=== PATIENT | male | born 1980 | race Caucasian/White ===

== ENCOUNTER 2017-07-22 13:28 | Emergency (ER) | payer OTHER ==
[2017-07-22 14:17] VITALS: BMI 25.3
--- NOTE | 2017-07-22 14:18 | PDOC ---
Attending Attestation - Resident Resident Name: Ammon Davidson - ED Attending Attestation I have performed the following: I have examined & evaluated the patient, The case was reviewed & discussed with the resident, I agree w/resident's findings & plan, Exceptions are as noted <Marycruz Molina - Last Filed: 07/22/17 14:18> - HPI HPI: 07/22/17 15:49 Pt is a 36 yo M with a PMHx of HTN, DM and ESRD (daily peritoneal dialysis) who presents to the ED s/p lightheadedness today. Patient was seated at doctors office and suddenly experienced lightheadedness, room spins and dizziness. Patient ate saltines and symptoms resolved. Patient denies any changes in dialysis and presents to the ED for further evaluation. Patient reports similar episodes in the past but it was not as severe today. Patient denies fever, chills, recent illnesses, sick contacts or recent travel. Neph: Dr. Soheila Osborne - Medical Decision Making 07/22/17 15:29 Documentation prepared by Kayleen Maldonado, acting as medical or surgical instrument maker for Marycruz Molina MD <Kayleen Maldonado - Last Filed: 07/22/17 16:17>
--- NOTE | 2017-07-22 14:18 | PDOC ---
History of Present Illness - General Chief Complaint: Lightheaded Stated Complaint: Blood Pressure Problem Time Seen by Provider: 07/22/17 14:16 - History of Present Illness Initial Comments: 07/22/17 14:30 36 yo M with h/o HTN, DM, and and ESRD ( daily peritoneal dialysis ) 2/2 DM who presents with lightheadedness. Patient reports acute onset of lightheadedness and room spinning sensation this AM at routine clinic visit ( 1130) while sitting down at rest. Reports SBP of 90 in office following event, which resolved after saltine crackers and PO fluid intake. Normal SBP 140. Denies LOC, or identifiable triggers, or alleviators. Denies SOB, CP, palpitations, cough, wheezing, N/V, F/C, diarrhea, constipation, abdominal pain , urinary complaints, JOSHI, tinnitus, hearing loss, weakness, sensory changes. Patient still able to produce urine.Dr. Soheila Chaudhry Die [employer] Work[employer]. Past History - Past Medical History Allergies/Adverse Reactions: Allergies Allergy/AdvReac Type Severity Reaction Status Date / Time No Known Drug Allergies Allergy Verified 02/07/16 14:51 Home Medications: Ambulatory Orders Furosemide [Lasix -] 80 mg PO DAILY #30 tablet 12/29/15 Losartan Potassium [Cozaar -] 50 mg PO DAILY #30 tablet 12/29/15 Spironolactone 25 mg PO DAILY 07/22/17 Anemia: No Asthma: Yes Cancer: No Cardiac Disorders: No CVA: No COPD: No CHF: No Dementia: No Diabetes: No GI Disorders: No Disorders: No HTN: Yes Hypercholesterolemia: No Liver Disease: No Seizures: No Thyroid Disease: No - Immunization History Td Vaccination: Yes Immunization Up to Date: Yes - Suicide/Smoking/Psychosocial Hx Smoking Status: No Smoking History: Never smoked Years of Tobacco Use: 0 Have you smoked in the past 12 months: No Number of Cigarettes Smoked Daily: 0 Cigars Per Day: 0 Hx Alcohol Use: No Drug/Substance Use Hx: No Substance Use Type: None Hx Substance Use Treatment: No Cardiac Specific PMH - Complaint Specific PMHX Pacemaker: No Review of Systems - Review of Systems Comments:: 07/22/17 14:48 GENERAL/CONSTITUTIONAL: No fever or chills. No weakness. HEAD, EYES, EARS, NOSE AND THROAT: No change in vision. No ear pain or discharge. No sore throat.- CARDIOVASCULAR: No chest pain or shortness of breath RESPIRATORY: No cough, wheezing, or hemoptysis. GASTROINTESTINAL: No nausea, vomiting, diarrhea or constipation. GENITOURINARY: No dysuria, frequency, or change in urination. MUSCULOSKELETAL: No joint or muscle swelling or pain. No neck or back pain. SKIN: No rash NEUROLOGIC: No headache, vertigo, loss of consciousness, or change in strength/ sensation. ENDOCRINE: No increased thirst. No abnormal weight change HEMATOLOGIC/LYMPHATIC: No anemia, easy bleeding, or history of blood clots. ALLERGIC/IMMUNOLOGIC: No hives or skin allergy. *Physical Exam - Vital Signs Last Vital Signs Temp Pulse Resp BP Pulse Ox 98.1 F 75 20 111/60 100 07/22/17 16:00 07/22/17 16:00 07/22/17 16:00 07/22/17 16:00 07/22/17 16:00 - Physical Exam Comments: 07/22/17 14:48 GENERAL: Awake, alert, and fully oriented, in no acute distress HEAD: No signs of trauma, normocephalic, atraumatic EYES: PERRLA, EOMI, sclera anicteric, conjunctiva clear ENT: Auricles normal inspection, hearing grossly normal, nares patent, oropharynx clear without exudates. Moist mucosa NECK: Normal ROM, supple, no lymphadenopathy, JVD, or masses LUNGS: No distress, speaks full sentences, clear to auscultation bilaterally HEART: Regular rate and rhythm, normal S1 and S2, no murmurs, rubs or gallops, peripheral pulses normal and equal bilaterally. ABDOMEN: Soft, nontender, normoactive bowel sounds. No guarding, no rebound. No masses EXTREMITIES : Normal inspection, Normal range of motion, no edema. No clubbing or cyanosis. NEUROLOGICAL: Cranial nerves II through XII grossly intact. Normal speech, normal gait, no focal sensorimotor deficits SKIN: Warm, Dry, normal turgor, no rashes or lesions noted. ED Treatment Course - LABORATORY CBC & Chemistry Diagram: 07/22/17 14:50 07/22/17 14:50 - ADDITIONAL ORDERS Additional order review: Laboratory Results 07/22/17 07/22/17 07/22/17 15:20 14:50 14:50 PT with INR 12.70 H INR 1.12 Sodium 138 Potassium 4.0 Chloride 101 Carbon Dioxide 24 Anion Gap 13 BUN 54 H Creatinine 8.6 H* Creat Clearance w eGFR 7.10 Random Glucose 101 Calcium 8.8 Total Bilirubin 0.3 D AST 8 L D ALT 24 Alkaline Phosphatase 65 Creatine Kinase 85 Troponin I < 0.02 D B-Natriuretic Peptide 99.15 Total Protein 7.1 D Albumin 3.8 D Urine Color Lt. yellow Urine Appearance Clear Urine pH 5.5 Ur Specific T[place]ill >= 1.030 Urine Protein 2+ H Urine Glucose (UA) Negative Urine Ketones Negative Urine Blood 1+ H Urine Nitrite Negative Urine Bilirubin Negative Urine Urobilinogen 0.2 Ur Leukocyte Esterase Negative Urine WBC (Auto) 2 Urine RBC (Auto) 2 Ur Epithelial Cells Rare Urine Mucus Rare 07/22/17 14:50 RBC 4.55 MCV 84.1 MCHC 32.7 RDW 14.1 MPV 9.3 D Neutrophils % 75.7 Lymphocytes % 16.4 D Monocytes % 4.7 Eosinophils % 2.6 Basophils % 0.6 - RADIOLOGY Radiology Studies Ordered: Category Date Time Status CXRPORT [CHEST X-RAY PORTABLE*] [RAD] Stat Radiology 07/22/17 14:43 Completed Medical Decision Making - Medical Decision Making 07/22/17 14:58 36 yo M with h/o HTN, DM, and and ESRD ( daily peritoneal dialysis ) 2/2 DM who presents with acute onset of lightheadedness and vertigo this AM at routine clinic visit ( 1130) at rest. Reports SBP of 90 in office following event, resolved after PO intake. Denies LOC, or identifiable triggers, or alleviators. Denies SOB, CP, palpitations, cough, wheezing, N/V, F/C, diarrhea, constipation , abdominal pain, urinary complaints, JOSHI, tinnitus, hearing loss, weakness, sensory changes. Patient still able to produce urine. Dr. Soheila Chaudhry Die [employer] Work[employer]. Physical exam with absent neuro deficits or nystagmus. Presentation consistent with vertigo. More likely peripheral tvs. central vertigo d/t rapid onset, severity, and absent neruo deficits. Will also consider presyncope 2/2 hypovolemia ( on Fureosomide ) vs. cardiac dyssarythmia. ED Course: CBC, CMP, Cardiac Pr, BNP UA, EKG, CXR EKG: NSR with absent peaked T waves, DALTON, or STD. MS interval 178 nml, and QTc is prolonged 482 07/22/17 15:49 WBC: 11.4 07/22/17 17:22 BUN: 54 CR: 8.6 ( baseline 8.0) UA: Unremarkable Patient stable for d/c with return precautions. Advised to f/u with outpatient PMD. *DC/Admit/Observation/Transfer Diagnosis at time of Disposition: Pre-syncope - Discharge Dispostion Disposition: HOME Condition at time of disposition: Stable Admit: No - Referrals Referrals: Soheila Chaudhry MD [Primary Care Provider] - - Patient Instructions Printed Discharge Instructions: DI for Syncope in Adults (Fainting) Additional Instructions: Please return to the emergency department with any new or worsening symptoms or concerns. Please follow up with primary medical physician within one week. - Post Discharge Activity - Attestations Physician Attestion: 07/22/17 17:25 I attest to the documentation in this note.
[2017-07-22 15:25] LABS: BASO % 0.6 % (0-2.0); EOS % 2.6 % (0-4.5); HEMATOCRIT 38.2 % (35.4-49); HEMOGLOBIN 12.5 GM/dL (11.7-16.9); LYMPH % 16.4 % (8-40); MCH 27.5 pg (25.7-33.7); MCHC 32.7 g/dl (32.0-35.9); MEAN CELL VOLUME 84.1 fl (80-96); MEAN PLT VOLUME 9.3 fl (7.5-11.1); MONO % 4.7 % (3.8-10.2); NEUT % 75.7 % (42.8-82.8); PLATELET COUNT 195 K/MM3 (134-434); RBC 4.55 M/mm3 (4.00-5.60); RDW 14.1 % (11.9-15.9); WHITE BLOOD COUNT 11.4 K/mm3 (4.0-10.0)
[2017-07-22 16:01] LABS: INR 1.12 (0.82-1.09); PROTHROMBIN TIME (PATIENT) 12.7 SEC (9.98-11.88)
[2017-07-22 16:03] LABS: ALBUMIN 3.8 g/dl (3.4-5.0); ANION GAP 13 (8-16); BILIRUBIN,TOTAL 0.3 mg/dL (0.2-1.0); BLOOD UREA NITROGEN 54 mg/dL (7-18); CALCIUM 8.8 mg/dL (8.5-10.1); CHLORIDE 101 mmol/L (98-107); CO2 24 mmol/L (21-32); GLUCOSE,RANDOM 101 mg/dL (74-106); SGOT/AST 8 U/L (15-37); SGPT/ALT 24 U/L (12-78); SODIUM 138 mmol/L (136-145); TOT PROT 7.1 g/dl (6.4-8.2)
[2017-07-22 16:09] LABS: ALK PHOS 65 U/L (45-117); N-TERMINAL BNP 99.15 pg/ml (5-125)
[2017-07-22 16:14] LABS: CREATININE 8.6 mg/dL (0.7-1.3)
[2017-07-22 16:27] VITALS: BP 111/60; PULSE 75; TEMP 98.1
[2017-07-22 16:39] LABS: PH,URINE 5.5 (5.0-8.0); URINE APPEARANCE CLEAR; URINE BILIRUBIN NEGATIVE (NEGATIVE); URINE BLOOD 1+ (NEGATIVE); URINE COLOR LT. YELLOW; URINE GLUCOSE (UA) NEGATIVE (NEGATIVE); URINE KETONE NEGATIVE (NEGATIVE); URINE LEUK ESTERASE NEGATIVE (NEGATIVE); URINE NITRITE NEGATIVE (NEGATIVE); URINE UROBILINOGEN 0.2 mg/dL (0.2-1.0)
[2017-07-22 16:43] LABS: URINE PROTEIN 2+ (NEGATIVE)
[2017-07-22 17:07] LABS: EPI CELLS RARE /HPF (FEW); URINE MUCUS RARE
--- NOTE | 2017-07-24 10:59 | EKG ---
Test Reason : Blood Pressure : / mmHG Vent. Rate : 071 BPM Atrial Rate : 071 BPM P-R Int : 178 ms QRS Dur : 098 ms QT Int : 444 ms P-R-T Axes : 062 059 074 degrees QTc Int : 482 ms NORMAL SINUS RHYTHM NONSPECIFIC ST AND T WAVE ABNORMALITY PROLONGED QT ABNORMAL ECG WHEN COMPARED WITH ECG OF 24-DEC-2015 07:55, NONSPECIFIC T WAVE ABNORMALITY NOW EVIDENT IN LATERAL LEADS Confirmed by JAYESH OROZCO, JEAN-PIERRE ([id number]) on 07/24/2017 10:59:19 AM Referred By: Confirmed By:JEAN-PIERRE MCCONNELL MD
== END 2017-07-22 18:20 | disposition home or self-care (01) ==
LOC: JER 13:28
DX: R55 Syncope and collapse (principal); I12.0 Hypertensive chronic kidney disease with stage 5 chronic kidney disease or end stage renal disease; E11.22 Type 2 diabetes mellitus with diabetic chronic kidney disease; N18.6 End stage renal disease; N17.8 Other acute kidney failure; Z99.2 Dependence on renal dialysis; Z79.84 Long term (current) use of oral hypoglycemic drugs
CPT/HCPCS: 36415; 71045-TC; 80053; 81003; 81015; 82550; 83880; 84484; 85025; 85610; 93005; 93010; 99283-25